=== PATIENT | female | born 1970 | race Caucasian/White ===

== ENCOUNTER → 2020-08-21 | Outpatient (CLI) | payer OTHER ==
[2018-01-05 07:00] VITALS: BP 165/95
[~2020-08-21] MED LIST: CLON-77 PO; LEVO75TA90 PO; LEVO88TA70 PO; SERT100T PO; SIMV20TA18 PO; SUMA25TA3 PO
--- NOTE | 2020-08-22 07:43 | RAD ---
Exam Date: 08/21/2020 10:54 AM XR LUMBAR SPINE 2-3V Indication: Reason: LOW BACK PAIN. / Spl. Instructions: / History: FINDINGS/ IMPRESSION: Anatomic alignment is maintained without spondylolisthesis. The vertebral body heights are maintaine d without evidence of compression fracture. Disc spaces are maintained. Small osteophytes are seen a t multiple levels. Degenerative changes are seen in the SI joints. Vascular calcifications are noted. Electronically signed by: Chucho Self MD (08/22/2020 7:41 AM) [id number]
== END ==
LOC: RAD 10:35
PROVIDERS: ATTEND Anesthesiology Pain Medicine
DX: Z02.71 Encounter for disability determination (principal); M46.1 Sacroiliitis, not elsewhere classified; M25.78 Osteophyte, vertebrae
CPT/HCPCS: 72100

== ENCOUNTER 2021-02-26 18:38 | Emergency (ER) | payer SELFPAY ==
[~2021-02-26] VITALS: Ht 157.5 cm; Wt 57.7 kg
[2021-02-26 20:45] VITALS: BP 142/82
[2021-02-26] MEDS ORDERED: diphenhydrAMINE 50 MG/ML VIAL IVP ONE (21:00)
[2021-02-26] MEDS ORDERED: METOCLOPRAMIDE HCL 10 MG/2 ML VIAL. IVP ONE (21:00)
[2021-02-26] MEDS ORDERED: KETOROLAC 30 MG/ML VIAL. IVP ONE (21:00)
[2021-02-26] MEDS ORDERED: IV NORMAL SALINE 1000ML BAG 1,000 ML IV ONE (21:00)
--- NOTE | 2021-02-26 21:05 | PHYS DOC ---
Past Medical History Past Medical History: Anxiety, Migraines, Other Additional Past Medical Histor: Graves Disease Past Surgical History: Cholecystectomy Smoking Status: Current Every Day Smoker Alcohol Use: None Drug Use: None General Adult EDM: Chief Complaint: HEADACHE HPI: HPI: Patient is a 50 year old female who presented to ER for evaluation of headache for the last 3 days. Patient has history of migraine headache, she said this is her typical migraine headache. Patient says she normally takes Imitrex at home but she ran out of it. Patient denies any cough or fever, no abdominal pain, no nausea vomiting, no blurry vision, no neck pain, no neck stiffness. Light and noise make it worse. Review of Systems: Review of Systems: Constitutional: Denies fever or chills. [] Eyes: Denies change in visual acuity. [] HENT: Denies nasal congestion or sore throat. [] Respiratory: Denies cough or shortness of breath. [] Cardiovascular: Denies chest pain or edema. [] GI: Denies abdominal pain, nausea, vomiting, bloody stools or diarrhea. [] : Denies dysuria. [] Musculoskeletal: Denies back pain or joint pain. [] Integument: Denies rash. [] Neurologic: Positive headache, no focal weakness or numbness, no neck stiffness. Endocrine: Denies polyuria or polydipsia. [] Lymphatic: Denies swollen glands. [] Psychiatric: Denies depression or anxiety. [] Heart Score: C/O Chest Pain: N/A Risk Factors: Risk Factors: DM, Current or recent (<one month) smoker, HTN, HLP, family history of CAD, obesity. Risk Scores: Score 0 - 3: 2.5% MACE over next 6 weeks - Discharge Home Score 4 - 6: 20.3% MACE over next 6 weeks - Admit for Clinical Observation Score 7 - 10: 72.7% MACE over next 6 weeks - Early Invasive Strategies Current Medications: Current Medications Medications (Trade) Dose Ordered Sig/Nathalie Start Time Stop Time Status Last Admin Dose Admin Diphenhydramine HCl (Benadryl) 25 mg 1X ONCE 02/26/21 21:00 02/26/21 21:01 Ketorolac Tromethamine (Toradol 30mg Vial) 30 mg 1X ONCE 02/26/21 21:00 02/26/21 21:01 Metoclopramide HCl (Reglan Vial) 10 mg 1X ONCE 02/26/21 21:00 02/26/21 21:01 Sodium Chloride 1,000 ml @ 1,000 mls/hr 1X ONCE 02/26/21 21:00 02/26/21 21:59 Allergies: Allergies: Allergies Coded Allergies Type Severity Reaction Last Updated Verified nut - unspecified Allergy Severe Hives 01/03/18 Yes Penicillins Allergy Intermediate 12/30/17 Yes Sulfa (Sulfonamide Antibiotics) Allergy Intermediate Unknown 12/31/17 Yes peanut Allergy Intermediate 12/30/17 Yes Physical Exam: PE: Constitutional: Well developed, well nourished, no acute distress, non-toxic appearance. [] HENT: Normocephalic, atraumatic, bilateral external ears normal, oropharynx moist, no oral exudates, nose normal. [] Eyes: PERRLA, EOMI, conjunctiva normal, no discharge. [] Neck: Normal range of motion, no tenderness, supple, no stridor. [] Cardiovascular:Heart rate regular rhythm, no murmur [] Lungs & Thorax: Bilateral breath sounds clear to auscultation [] Abdomen: Bowel sounds normal, soft, no tenderness, no masses, no pulsatile masses. [] Skin: Warm, dry, no erythema, no rash. [] Back: No tenderness, no CVA tenderness. [] Extremities: No tenderness, no cyanosis, no clubbing, ROM intact, no edema. [] Neurologic: Alert and oriented X 3, normal motor function, normal sensory function, no focal deficits noted. [] Psychologic: Affect normal, judgement normal, mood normal. [] Current Patient Data: Labs: Current Medications Medications (Trade) Dose Ordered Sig/Nathalie Route PRN Reason Start Time Stop Time Status Last Admin Dose Admin Sodium Chloride 1,000 ml @ 1,000 mls/hr 1X ONCE IV 02/26/21 21:00 02/26/21 21:59 DC 02/26/21 21:28 Metoclopramide HCl (Reglan Vial) 10 mg 1X ONCE IVP 02/26/21 21:00 02/26/21 21:01 DC 02/26/21 21:28 Diphenhydramine HCl (Benadryl) 25 mg 1X ONCE IVP 02/26/21 21:00 02/26/21 21:01 DC 02/26/21 21:27 Ketorolac Tromethamine (Toradol 30mg Vial) 30 mg 1X ONCE IVP 02/26/21 21:00 02/26/21 21:01 DC 02/26/21 21:27 EKG: EKG: [] Radiology/Procedures: Radiology/Procedures: [] Course & Med Decision Making: Course & Med Decision Making Pertinent Labs and Imaging studies reviewed. (See chart for details) Patient is a 50-year-old female who present to ER due to headache. This is her typical migraine headache. Patient was given medication, she felt much better. Patient will be discharged home Dragon Disclaimer: [employer] Disclaimer: This electronic medical record was generated, in whole or in part, using a voice recognition dictation system. Departure Departure Impression: Primary Impression: Headache Disposition: HOME / SELF CARE / HOMELESS Condition: IMPROVED Referrals: NO PCP (PCP) BENNY VELAZQUEZ MD Please call this neurologist for outpatient follow up this week. Patient Instructions: Migraine Headache Additional Instructions: Thank you for visiting our Emergency Department. We appreciate you trusting us with your care. If any additional problems come up don't hesitate to return to visit us. Please follow up with your primary care provider so they can plan additional care if needed and know about the problem that you had. If symptoms worsen come back to the Emergency Department. Any concerning symptoms that start such as chest pain, shortness of air, weakness or numbness on one side of the body, running high fevers or any other concerning symptoms return to the ER. Scripts Sumatriptan Succinate (IMITREX) 50 Mg Tablet 50 MG PO ONCE PRN for MIGRAINE HEADACHE MDD 200 MG, #9 TAB Prov: PRATIK CASTANEDA DO 02/26/21 PRATIK CASTANEDA DO Feb 26, 2021 21:05
[2021-02-26] MEDS ORDERED: SUMA50TA3 PO (21:08)
== END 2021-02-26 22:19 | disposition home or self-care (01) ==
LOC: ER 18:38
DX: G43.909 Migraine, unspecified, not intractable, without status migrainosus (principal); F41.9 Anxiety disorder, unspecified; F17.200 Nicotine dependence, unspecified, uncomplicated; Z88.0 Allergy status to penicillin; Z88.2 Allergy status to sulfonamides; Z91.010 Allergy to peanuts
CPT/HCPCS: 96361; 96374; 96375; 99284; J1200; J1885; J2765; J7030